=== PATIENT | female | born 1975 | race Two or more races ===

== ENCOUNTER 2017-01-11 09:20 | Emergency (ER) | payer MEDICAID ==
[~2017-01-11] VITALS: Ht 160 cm; Wt 103.4 kg
[~2017-01-11 09:20] MED LIST: PROAIR; [UNRECOGNIZED DRUG - OTHER]
[2017-01-11 10:54] VITALS: BP 144/93
== END 2017-01-11 11:50 | disposition home or self-care (01) ==
LOC: ER 09:24
DX: S93.402A Sprain of unspecified ligament of left ankle, initial encounter (principal); J45.909 Unspecified asthma, uncomplicated; F17.210 Nicotine dependence, cigarettes, uncomplicated; Z88.6 Allergy status to analgesic agent; Z90.49 Acquired absence of other specified parts of digestive tract
CPT/HCPCS: 73610